=== PATIENT | female | born 2005 | race African-American/Black ===

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

== ENCOUNTER 2024-10-15 15:30 | Emergency (ER) | payer BC, SELFPAY ==
[2024-10-15 15:43] VITALS: BP 137/81; PULSE 105; RESP 18; TEMP 36.6; O2SAT 100
[2024-10-15 17:57] LABS: Influenza A QL RT-PCR Negative (Negative); Influenza B QL RT-PCR Negative (Negative); RSV RNA, RT-PCR Negative (Negative); SARS-CoV-2 RNA PCR Negative (Negative)
[2024-10-15 18:02] LABS: Hematocrit 36.7 % (37.0-47.0); Hemoglobin 12.7 g/dL (12.0-15.0); Immature Platelet Fraction Pct 5.6 % (0.9-11.2); Mean Corpuscular HGB Conc 34.6 g/dl (32-36); Mean Corpuscular Hemoglobin 32.1 pg (26-34); Mean Corpuscular Volume 92.7 fl (80-100); Mean Platelet Volume 10.7 fl (7.4-10.4); Platelet Count Result 120 k/mm3 (150-375); Red Blood Count 3.96 M/mm3 (4.2-5.4); Red Cell Distribution Width 11.4 % (11.5-14.5); White Blood Count 5.6 K/mm3 (4.5-10.0)
[2024-10-15 18:08] LABS: Alanine Aminotransferase 170 U/L (6-35); Albumin Level 4.4 g/dL (3.5-5.1); Alkaline Phosphatase 83 U/L (38-126); Anion Gap 5 mmol/L (4-12); Aspartate Amino Transferase 180 U/L (14-36); Bilirubin,Total 1.7 mg/dL (0.2-1.3); Blood Urea Nitrogen 8 mg/dL (7-17); Carbon Dioxide 27 mmol/L (22-30); Chloride 102 mmol/L (98-107); Estimated CRCL calculation 95 ml/min; Estimated Glomerular Filt Rate > 60; Glucose 90 mg/dL (65-110); Sodium 134 mmol/L (137-145)
--- NOTE | 2024-10-15 18:16 | ED_ITS ---
HPI - Fever General Chief Complaint: Fever Stated Complaint: fever Time Seen by Provider: 10/15/24 17:01 Source: patient Mode of arrival: ambulatory Limitations: no limitations History of Present Illness HPI Narrative: This is a 19 year old female who presents to the ED for chief complaint of fever and headache beginning 4 nights ago. Patient reports that her fever has been waxing and waning with highest temperature of a 102? F. also reports that she has been taking Tylenol with decent relief of symptoms. Reports that she is having headache, neck stiffness, back stiffness and aches. Denies any known sick contacts. Denies shortness of breath, chest pain, abdominal pain, N/V/D, urinary symptoms, LOC. Related Data Allergies Allergy/AdvReac Type Severity Reaction Status Date / Time No Known Allergies Allergy Verified 02/18/23 17:58 Review of Systems Review of Systems: All systems as dictated in HPI PMFSH Past Medical History Medical History (Updated 10/15/24 @ 18:47 by Cristiano Manjarrez PA-C) Patient denies significant medical history Social History Social History (Updated 02/18/23 @ 07:35 by Ashok Rodriguez, DO) Smoking status: Never smoker Exam Narrative: GENERAL: Well-appearing, well-nourished, and in no acute distress. HEAD: Normocephalic, atraumatic. EYES: PERRLA and EOMI. ENT: Mild posterior chain lymphadenopathy on the right. Nares clear, no rhinorrhea or epistaxis. Mucous membranes moist. Oropharynx without tonsillar hypertrophy exudate or other lesions. NECK: Supple. No adenopathy or masses. Full active range of motion of the ne ck. No tenderness throughout the neck. CHEST: No respiratory distress. Clear to auscultation. No wheezes rales or rhonchi HEART: Regular rate and rhythm. No murmur heard. Normal peripheral pulses. ABDOMEN: Soft, nontender, nondistended, normal active bowel sounds. MSK: Normal range of motion. No edema. SKIN: Warm, dry, no rash. NEURO: Alert and oriented x4. No focal deficits. PSYCH: Normal mood and affect. Course Vital Signs Vital signs: Vital Signs Temperature 97.8 F 10/15/24 15:43 Pulse Rate 105 H 10/15/24 15:43 Respiratory Rate 18 10/15/24 15:43 Blood Pressure 137/81 10/15/24 15:43 Pulse Oximetry 100 10/15/24 15:43 Oxygen Delivery Room Air 10/15/24 15:43 Temperature 97.8 F 10/15/24 15:43 Pulse Rate 105 H 10/15/24 15:43 Respiratory Rate 18 10/15/24 15:43 Blood Pressure 137/81 10/15/24 15:43 Pulse Oximetry 100 10/15/24 15:43 Oxygen Delivery Room Air 10/15/24 15:43 MDM - Fever MDM Narrative Medical decision making narrative: This is a 19-year-old female who presents to the ED for fever and headache starting 4 days ago. Vitals are normal. Exam shows swollen tender lymph node to the posterior cervical chain on the right. Otherwise exam is benign, nontoxic appearing. Resting comfortably Lab work does show mild elevations to AST and ALT today. She is not having any sore throat to indicate mono or strep. Platelets slightly low which is consistent with viral syndrome. Flu and COVID swabs are negative. Overall presentation is consistent with a viral syndrome. Patient will be discharged in stable condition. Supportive measures discussed and return precautions given. Patient is understanding and agreeable with plan for discharge with PCP follow-up. Lab Data 10/15/24 17:55 10/15/24 17:55 Labs: Lab Results 10/15/24 10/15/24 Range/Units 17:16 17:55 WBC Pending RBC Pending Hgb Pending Hct Pending MCV Pending MCH Pending MCHC Pending RDW Pending Plt Count Pending MPV Pending Immature Gran % (Auto) Pending Neut % (Auto) Pending Lymph % (Auto) Pending [place] % (Auto) Pending Eos % (Auto) Pending Baso % (Auto) Pending Lymph # (Auto) Pending [place] # (Auto) Pending Eos # (Auto) Pending Baso # (Auto) Pending Abs Immat Gran (auto) Pending Absolute Neuts (auto) Pending Absolute Nucleated RBC Pending Nucleated RBC % Pending Sodium 134 L (137-145) mmol/L Potassium 4.0 (3.4-5.0) mmol/L Chloride 102 (98-107) mmol/L Carbon Dioxide 27 (22-30) mmol/L Anion Gap 5 (4-12) mmol/L BUN 8 (7-17) mg/dL Creatinine 0.70 (0.7-1.0) mg/dL Estim Creat Clear Calc 95 ml/min Estimated GFR > 60 (59 - ) Glucose 90 (65-110) mg/dL Calcium 9.0 (8.4-10.2) mg/dL Total Bilirubin 1.7 H (0.2-1.3) mg/dL AST 180 H (14-36) U/L ALT 170 H (6-35) U/L Alkaline Phosphatase 83 (38-126) U/L Total Protein 8.0 (6.3-8.2) g/dL Albumin 4.4 (3.5-5.1) g/dL Influenza A (RT-PCR) Negative (Negative) Influenza B (RT-PCR) Negative (Negative) RSV (RT-PCR) Negative (Negative) SARS-CoV-2 RNA (RT-PCR) Negative (Negative) Discharge Plan Discharge Clinical Impression: Acute viral syndrome Patient Disposition: Home, Self-Care Condition: Stable Instructions: Antibiotic Form, Upper Respiratory Infection (ED) Additional Instructions: Exam workup today are reassuring. This is probably a viral syndrome. Please follow-up with [facility] for re-evaluation. Continue stay well hydrated and control fevers with Tylenol and ibuprofen. If you have any new or worsening symptoms please return to the ER for further evaluation. Prescriptions: No Action azithromycin 250 mg tablet 250 mg PO DAILY 4 Days Qty: 4 0RF Rx Instructions: start on 02/19/23 fluticasone propionate [Flonase Allergy Relief] 50 mcg/actuation spray,suspension 1 spray intranasal DAILY Qty: 16 0RF Rx Instructions: administer into each nostril ibuprofen 600 mg tablet 600 mg PO TID PRN (Reason: pain) Qty: 10 0RF ofloxacin 0.3 % drops See Rx Instructions .ROUTE .COMPLEX Qty: 5 0RF Rx Instructions: put 1-2 drps into affected eye(s) every 2-4 h x 2 days, then 1-2 drps 4 times/day days 3-7 Follow-up/Referrals: PHYSICIAN NOT ON STAFF,NONSTAFF [Primary Care Provider] - Time of Disposition: 18:47
[2024-10-15 18:27] LABS: Atypical Lymphocytes Present; Band Neutrophils Percent 4 % (0-6); Monocytes Absolute Manual 0.11 K/mm3 (0.1-0.90); Monocytes Percent Manual 2 % (3-9); Neutrophils Absolute Manual 3.58 K/mm3 (1.7-7.2); Neutrophils Percent Manual 60 % (46-73); Platelet Estimate Decreased (Adequate); Schistocytes None Seen; Smudge Cells FEW; Total Cells Counted 50
== END 2024-10-15 18:59 | disposition home or self-care (01) ==
PROVIDERS: Emergency Provider Physician Assistant
DX: B34.9 Viral infection, unspecified (principal); Z20.822 Contact with and (suspected) exposure to COVID-19
CPT/HCPCS: 36415; 80053; 85025; 85055; 87637; 99283